=== PATIENT | male | born 1985 | race Caucasian/White ===

== ENCOUNTER 2022-04-24 11:26 | Outpatient (REF) | payer OTHER, SELFPAY ==
--- NOTE | ~2022-04-24 | XR_ITS ---
EXAMINATION: XR CHEST CLINICAL INFORMATION: Reason for Exam R09.89 COMPARISON: None TECHNIQUE: 2 views of the chest were obtained. FINDINGS: No significant abnormality is noted involving the heart, lungs, mediastinum, bony thorax or soft tissues. XR/XR chest 2V IMPRESSION: Unremarkable examination.
[2022-04-24 12:05] LABS: MANUAL DIFF FLAG NO
[2022-04-24 12:13] LABS: Basophils Percent Auto 0.3 % (0-2); Eosinophils Absolute Auto 0.2 X10*3/uL (0.0-0.4); Eosinophils Percent Auto 2.6 % (0-4); Hematocrit 45.6 % (42.0-52.0); Hemoglobin 15.5 g/dl (14.0-18.0); Imm Gran Abs Auto 0.02 X10*3/uL (0.00-0.03); Imm Gran Pct Auto 0.3 % (0.0-0.4); Lymphocytes Absolute Auto 1.9 X10*3/uL (1.2-4.9); Lymphocytes Percent Auto 33.3 % (20-40); Mean Corpuscular Hemoglobin 30.5 pg (27.0-33.0); Mean Corpuscular Volume 89.6 fL (80.0-98.0); Mean Platelet Volume 9.6 fL (9.4-12.4); Monocytes Absolute Auto 0.4 X10*3/uL (0.1-1.2); Monocytes Percent Auto 6.2 % (2-11); Neutrophils Absolute Auto 3.3 x10*3/uL (2.0-8.3); Neutrophils Percent Auto 57.3 % (45-73); Platelet Count 252 X10*3/uL (160-400); Red Blood Count 5.09 X10*6/uL (4.60-5.80); Red Cell Distribution Width 11.8 % (11.0-16.0); White Blood Count 5.8 X10*3/uL (4.8-10.8)
[2022-04-24 13:01] LABS: Erythrocyte Sedimentation Rate 7 MM/HR (0-15)
[2022-04-24 13:38] LABS: Appearance Urine CLEAR; Color Urine YELLOW; Glucose Urine UA NEG (NEG); Leukocyte Esterase Urine NEG (NEG); Nitrite Urine NEG (NEG); Specific Gravity - Urine 1.015 (1.005-1.025); Urine Blood NEG (NEG); Urine Ketones NEG (NEG); Urine Protein NEG (NEG-TRACE)
[2022-04-24 13:59] LABS: Monotest Negative (Negative)
[2022-04-24 14:22] LABS: Alanine Aminotransferase 39 U/L (0-40); Albumin Level 4.1 g/dL (3.5-5.0); Alkaline Phosphatase 37 U/L (39-117); Anion Gap 12 (12-20); Aspartate Amino Transferase 26 U/L (5-37); Bilirubin Total 0.9 mg/dL (0.0-1.0); Blood Urea Nitrogen 13 mg/dL (9-16); Calcium 9.3 mg/dL (8.4-10.2); Carbon Dioxide 26 mmol/L (22-29); Chloride 108 mmol/L (96-108); Cholesterol 186 mg/dL; Estimated Glomerular Filt Rate > 60; Glucose Fasting 92 mg/dL (60-99); HDL Cholesterol 34 mg/dL; LDL Cholesterol Calculated 113 mg/dl; Potassium 4.5 mmol/L (3.3-5.1); Sodium 141 mmol/L (135-145); Triglycerides 198 mg/dL
[2022-04-24 14:42] LABS: TSH reflex Free T4 1.31 uIU/mL (0.32-4.0); Vitamin D 25-OH Total 20.2 ng/mL (>30)
[2022-04-26 13:12] LABS: Lyme Abs Screen <0.90 index
== END 2022-04-24 11:27 | disposition home or self-care (01) ==
LOC: HO.XRAY 11:26
PROVIDERS: PCP Internal Medicine; Visit Provider Internal Medicine
DX: Z00.00 Encounter for general adult medical examination without abnormal findings (principal); J35.3 Hypertrophy of tonsils with hypertrophy of adenoids; M25.50 Pain in unspecified joint; E55.9 Vitamin D deficiency, unspecified; R09.89 Other specified symptoms and signs involving the circulatory and respiratory systems
CPT/HCPCS: 36415; 71046; 80053; 80061; 81003; 82306; 84443; 85025; 85652; 86140; 86308; 86617; 86618

== ENCOUNTER 2023-03-07 14:22 | Outpatient (REF) | payer OTHER, SELFPAY ==
--- NOTE | 2023-03-07 17:19 | PFT_ITS ---
FLOWS: 1. FEV1 103% of predicted at 4.48 L. 2. FVC 95% of predicted at 5.13 L. 3. FEV1 to FVC ratio of 0.87. 4. No bronchodilator response. LUNG VOLUMES: 1. Total lung capacity 92% of predicted at 6.41 L. 2. Residual volume 75% of predicted at 1.32 L. 3. Slow vital capacity 98% of predicted at 5.09 L. 4. Expiratory reserve volume 57% of predicted at 0.97 L. 5. Diffusion capacity is normal. IMPRESSION: No obstructive or restrictive ventilatory defect. No bronchodilator response. Essentially normal pulmonary function test. MD SENDY Baxter/MODL / [id number]
== END 2023-03-07 14:23 | disposition home or self-care (01) ==
LOC: HO.RESP 14:22
PROVIDERS: PCP Internal Medicine; Visit Provider Internal Medicine
DX: R09.89 Other specified symptoms and signs involving the circulatory and respiratory systems (principal)
CPT/HCPCS: 94060; 94727; 94729

== ENCOUNTER 2023-04-29 09:38 | Outpatient (REF) | payer OTHER, SELFPAY ==
[2023-04-29 09:58] LABS: MANUAL DIFF FLAG NO
[2023-04-29 10:54] LABS: Basophils Percent Auto 0.5 % (0-2); Eosinophils Absolute Auto 0.2 X10*3/uL (0.0-0.4); Eosinophils Percent Auto 3.3 % (0-4); Hematocrit 46.7 % (42.0-52.0); Hemoglobin 16.3 g/dl (14.0-18.0); Imm Gran Abs Auto 0.06 X10*3/uL (0.00-0.03); Lymphocytes Absolute Auto 1.8 X10*3/uL (1.2-4.9); Mean Corpuscular HGB Conc 34.9 g/dl (31.0-36.0); Mean Corpuscular Hemoglobin 31.3 pg (27.0-33.0); Mean Corpuscular Volume 89.8 fL (80.0-98.0); Mean Platelet Volume 10.3 fL (9.4-12.4); Monocytes Absolute Auto 0.4 X10*3/uL (0.1-1.2); Monocytes Percent Auto 6.9 % (2-11); Neutrophils Absolute Auto 3.4 x10*3/uL (2.0-8.3); Neutrophils Percent Auto 58.3 % (45-73); Platelet Count 293 X10*3/uL (160-400); Red Cell Distribution Width 11.7 % (11.0-16.0); White Blood Count 5.8 X10*3/uL (4.8-10.8)
[2023-04-29 11:33] LABS: Erythrocyte Sedimentation Rate 5 MM/HR (0-15)
[2023-04-29 11:50] LABS: Appearance Urine Clear; Color Urine Dark Yellow; Glucose Urine UA Negative (Negative); Leukocyte Esterase Urine Trace (Negative); Nitrite Urine Negative (Negative); PH 5.5 (5.0-9.0); Specific Gravity - Urine >= 1.030 (1.005-1.025); UMIC TRIGGER UACC YES; Urine Blood Negative (Negative); Urine Ketones Trace mg/dL (Negative); Urine Protein Trace mg/dL (Neg-Trace)
[2023-04-29 11:53] LABS: Bacteria Urine None Seen (None Seen); Squamous Epithelial Cell Urine 0-2 /HPF (0-2); WBC Urine 0-5 /HPF (0-5)
[2023-04-29 12:42] LABS: Alanine Aminotransferase 66 U/L (0-40); Albumin Level 4.2 g/dL (3.5-5.0); Alkaline Phosphatase 40 U/L (39-117); Anion Gap 12 (12-20); Aspartate Amino Transferase 31 U/L (5-37); Blood Urea Nitrogen 15 mg/dL (9-16); Calcium 9.5 mg/dL (8.4-10.2); Carbon Dioxide 26 mmol/L (22-29); Chloride 107 mmol/L (96-108); Cholesterol 203 mg/dL; Estimated Glomerular Filt Rate > 60; Glucose Fasting 83 mg/dL (60-99); HDL Cholesterol 37 mg/dL; LDL Cholesterol Calculated 122 mg/dl; Potassium 4.4 mmol/L (3.3-5.1); Sodium 141 mmol/L (135-145); TSH reflex Free T4 1.26 uIU/mL (0.32-4.0); Total Protein 7.2 g/dL (6.5-8.0); Triglycerides 220 mg/dL; Vitamin D 25-OH Total 30.3 ng/mL (>30)
[2023-05-01 15:24] LABS: Gliadin Deamidated IgA Ab 20.8 U/mL; Gliadin Deamidated IgG Ab 228.2 U/mL; Transglutaminase Ab IgG 6.3 U/mL
== END 2023-04-29 09:39 | disposition home or self-care (01) ==
LOC: HO.LAB 09:38
PROVIDERS: PCP Internal Medicine; Visit Provider Internal Medicine
DX: Z00.00 Encounter for general adult medical examination without abnormal findings (principal); R30.0 Dysuria; E55.9 Vitamin D deficiency, unspecified; R19.7 Diarrhea, unspecified; M25.50 Pain in unspecified joint; E66.9 Obesity, unspecified; E78.00 Pure hypercholesterolemia, unspecified
CPT/HCPCS: 36415; 80053; 80061; 81001; 82306; 84443; 85025; 85652; 86258; 86364

== ENCOUNTER 2023-07-17 09:17 | Outpatient (AMB) | payer OTHER, SELFPAY ==
--- NOTE | 2023-07-17 09:18 | MHC.OFFVIS ---
Intake Vital Signs 07/17/23 09:43 Height 5 ft 8 in Weight 203 lb 11.314 oz BMI 31.0 BP 103/62 Blood Pressure Location Rt brachial Position Sitting Pulse 89 Intake Visit Reasons: Celiac disease Intake Note: Patient presents to in office visit today as a new patient for celiac disease. CC: Patient c/o diarrhea, RUQ abdominal pain for 7 years, and GERD. Denies other GI symptoms today. 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 ? he is referred by Jayden Vega of [facility] primary care. PMX Celiac disease GERD Anxiety Obesity * SURGICAL HISTORY [place] teeth surgery * ALLERGIES: NKDA * [email or web address] LABS: Laboratory Tests 04/29/23 04/29/23 04/29/23 09:55 09:55 09:55 WBC 5.8 Hgb 16.3 Hct 46.7 Plt Count 293 Estimated GFR > 60 Total Bilirubin 1.0 AST 31 ALT 66 H Alkaline Phosphata se 40 TSH 1.26 Tiss Transglutamin IgG 6.3 Anti-Gliadin IgG A b 228.2 H Gliadin (Deamidat) IgA 20.8 H Laboratory Tests 04/24/22 12:03 C-Reactive Protein 0.10 TODAY'S VISIT A couple of years ago he had blood work that came back abnormal that there were some signs of Celiac, and he was to have an EGD/colonoscopy but he lost his job. He started having diarrhea and right sided abd pain about 7 years ago. He has had many tests adn US and no abnormality found. He also has bad GERD. He takes omeprazole for his GERD. He was seen at [facility] about 2-3 years ago for this. He has not been avoiding gluten because it was not confirmed. I advised him that he should start avoiding gluten because this would help with his presentation and diagnosis as well as potentially with his discomfort/abdominal pain. He denies any cardiac or respiratory problems. He does not have much experience with anesthesia or sedation except for dental procedures. NO ID problems.. Father had CRC age 60 - no FHX food allergies known. [facility] Medical History (Updated 07/17/23 @ 10:03 by CHRISTINE Asher) Anxiety GERD (gastroesophageal reflux disease) Obesity (BMI 30-39.9) Vitamin D deficiency Surgical History No pertinent past surgical history Family History Mother High blood pressure Family history of thyroid problem Father No problems noted. Maternal Grandmother Cancer Social History Housing: Apartment Alcohol intake: former Patient Tobacco Use Status: Former Tobacco user Quit Date: May 2021 e-Cigarette/Vaping Use: Never Used Second Hand Smoke Exposure: Yes service: No Current occupational status: employed Cognitive needs: No Hearing needs: No Vision needs: No Review of Systems Const Denies fatigue, Denies fever(s), Denies night sweats, Denies poor appetite and Denies weight loss ENT Reports Normal hearing present, Denies dental pain, Denies dysphagia, Denies hearing loss, Denies mouth pain, Denies odynophagia, Denies throat swelling, Denies tongue swelling and Reports other (Dentition adequate) Card Reports no additional complaints Resp Reports no additional complaints GI Denies abdominal pain, Denies melena, Denies bloating, Denies hematochezia, Denies constipation, Denies GI cramping, Denies dysphagia, Denies excessive flatus, Denies early satiety, Denies heartburn, Reports diarrhea, Denies nausea, Denies odynophagia, Denies vomiting and Denies hematemesis Skin/Breast Denies pruritus, Denies lesions, Denies rash and Denies jaundice Neuro Reports Normal hearing present and Denies Abnormal speech present Endo Denies fatigue Aller/Immun Denies throat swelling and Denies tongue swelling Physical Exam Vital Signs: Last Vital Signs Pulse 89 07/17/23 09:43 BP 103/62 07/17/23 09:43 BMI result Body Mass Index 31.0 Const General: cooperative, no acute distress, well developed and well groomed Nutritional Appearance: well nourished and obese centrally obese Orientation/consciousness: oriented to person, oriented to place and oriented to time Limitations: No language barrier HEENT Head: Yes normocephalic and Yes atraumatic Eyes General: appearance normal, both eyes and all related structures Pupils: Equal, round and reactive pupils present Neck Neck: Yes normal visual inspection and Yes no lymphadenopathy Thyroid: Thyroid normal Resp Effort & Inspection: normal respiratory effort and able to speak in complete sentences Auscultation: clear to auscultation bilaterally Cardio Rate: regular rate Rhythm: regular rhythm Heart sounds: Normal, physiologic split S2 sound present Peripheral pulses: radial pulses present and posterior tibial pulses present GI Inspection: No distended, No Abdominal panniculus present and Yes obesity Palpation (GI): Soft to palpation, nontender, no guarding, not rigid and No hepatosplenomegaly present Percussion: Yes normal to percussion Auscultation: normal bowel sounds Rectal Exam - Male: Yes deferred Skin General skin exam: no rashes or lesions noted, turgor normal, skin not dry, no jaundice, No spider nevi and no striae Rashes: no rashes Nails: normal Neuro General: oriented to person, oriented to place and oriented to time Cranial nerves: Yes Equal, round and reactive pupils present and Yes Normal hearing present Speech: No Abnormal speech present Extrem General: Yes normal to inspection, No clubbing, No cyanosis and No edema Psych Appearance: grossly normal and well kempt Mental Status: mental status grossly normal Speech and movement: Normal speech and movement present Affect: normal affect Attitude: cooperative Thought process: Normal thought process present and not confabulating Thought content: Normal thought content present Insight: Fair insight present (Psych) Judgement: Fair judgement present (Psych) Assessment & Plan Assessment & Plan (1) Diarrhea: Code(s): R19.7 - Diarrhea, unspecified Plan: A couple of years ago he had blood work that came back abnormal that there were some signs of Celiac, and he was to have an EGD/colonoscopy but he lost his job. He started having diarrhea and right sided abd pain about 7 years ago. He has had many tests adn US and no abnormality found. He also has bad GERD. He takes omeprazole for his GERD. He was seen at [facility] about 2-3 years ago for this. He has not been avoiding gluten because it was not confirmed. I advised him that he should start avoiding gluten because this would help with his presentation and diagnosis as well as potentially with his discomfort/abdominal pain. He denies any cardiac or respiratory problems. He does not have much experience with anesthesia or sedation except for dental procedures. NO ID problems.. Father had CRC age 60 - no FHX food allergies known. Orders: Orders Transglutaminase IgA Today R19.7 - Diarrhea, unspecified Transglutaminase Ab IgG Today R19.7 - Diarrhea, unspecified Rast Allergen Today R19.7 - Diarrhea, unspecified EGD/[place] Combo - GI Use Only Today R19.7 - Diarrhea, unspecified Coding Level of Care Code New Pt Level 3 (76258) Diagnoses Diarrhea R19.7
[2023-07-17 09:43] VITALS: BP 103/62; PULSE 89; BMI 31.0
== END 2023-07-17 10:16 | disposition home or self-care (01) ==
PROVIDERS: PCP Internal Medicine; Visit Provider Nurse Practitioner
DX: R19.7 Diarrhea, unspecified (principal)
CPT/HCPCS: 99203

== ENCOUNTER → 2023-07-17 09:17 | Outpatient (BNVA) | payer OTHER, SELFPAY | PROVIDERS: PCP Internal Medicine; Visit Provider Nurse Practitioner | DX: R19.7 Diarrhea, unspecified (principal) | CPT/HCPCS: 99202 ==